=== PATIENT | male | born 1940 | race Caucasian/White ===

== ENCOUNTER → 2016-06-17 | Outpatient (REF) | payer MEDICARE, OTHER ==
[~2016-06-17] MED LIST: AMLO10TA2 PO; ASPI1TAB PO; COZA1TAB PO; ELIQ5TAB PO; FOLI1TAB2 PO; LEVA500T PO; MAG400TA PO; MEDR4PAK PO; PROP20TA PO; Thiamine Hcl PO
== END ==
LOC: M SFHCPLAZ 12:53
PROVIDERS: ATTEND Family Medicine
DX: E11.9 Type 2 diabetes mellitus without complications (principal); Z23 Encounter for immunization
CPT/HCPCS: 36415; 82043; 83036; 90670; G0009; G0463

== ENCOUNTER → 2016-06-20 | Outpatient (CLI) | payer MEDICARE, OTHER ==
[2016-06-20 11:32] LABS: FREE T4 1.27 NG/DL (0.76-1.46)
== END ==
LOC: M LAB 10:27
PROVIDERS: ATTEND Physician Assistant Medical
DX: E05.11 Thyrotoxicosis with toxic single thyroid nodule with thyrotoxic crisis or storm (principal)

== ENCOUNTER → 2016-09-26 | Outpatient (CLI) | payer MEDICARE, OTHER ==
[2016-09-26 09:30] LABS: FREE T4 1.09 NG/DL (0.76-1.46)
== END ==
LOC: M LAB 08:26
PROVIDERS: ATTEND Physician Assistant Medical
DX: E05.11 Thyrotoxicosis with toxic single thyroid nodule with thyrotoxic crisis or storm (principal)

== ENCOUNTER → 2017-01-23 | Outpatient (CLI) | payer MEDICARE, OTHER ==
[~2017-01-23] MED LIST changes: -FOLI1TAB2 PO; +FOLI1TAB4 PO; +LEVA1TAB2 PO; -LEVA500T PO
[2017-01-23 11:47] LABS: FREE T4 1.1 NG/DL (0.76-1.46)
== END ==
LOC: M LAB 09:10
PROVIDERS: ATTEND Internal Medicine Endocrinology, Diabetes & Metabolism
DX: E05.11 Thyrotoxicosis with toxic single thyroid nodule with thyrotoxic crisis or storm (principal)

== ENCOUNTER → 2017-01-31 | Outpatient (CLI) | payer MEDICARE, OTHER ==
[2017-01-31 10:19] LABS: ALBUMIN 3.6 GM/DL (3.2-5.2); ALBUMIN/GLOBULIN RATIO 1.06 (1.00-1.93); ALKALINE PHOSPHATASE 109 U/L (45-117); ALT/SGPT 20 U/L (12-78); ANION GAP 7 MEQ/L (8-16); AST/SGOT 14 U/L (15-37); BILIRUBIN,TOTAL 0.5 MG/DL (0.2-1.0); BLOOD UREA NITROGEN 14 MG/DL (7-18); CALCIUM LEVEL 8.9 MG/DL (8.8-10.2); CARBON DIOXIDE LEVEL 29 MEQ/L (21-32); CHLORIDE LEVEL 106 MEQ/L (98-107); CHOLESTEROL LEVEL 169 MG/DL (<200); CREATININE FOR GFR 0.85 MG/DL (0.70-1.30); GLOMERULAR FILTRATION RATE > 60.0 (>42); GLUCOSE, FASTING 91 MG/DL (83-110); POTASSIUM SERUM 4.4 MEQ/L (3.5-5.1); SODIUM LEVEL 142 MEQ/L (136-145); TRIGLYCERIDES LEVEL 68 MG/DL (<150)
== END ==
LOC: M LAB 08:49
PROVIDERS: ATTEND Student in an Organized Health Care Education/Training Program
DX: E83.42 Hypomagnesemia (principal); Z71.89 Other specified counseling; Z79.899 Other long term (current) drug therapy

== ENCOUNTER → 2017-04-14 | Outpatient (CLI) | payer MEDICARE, OTHER ==
[2017-04-14 11:06] LABS: FREE T4 1.28 NG/DL (0.76-1.46)
== END ==
LOC: M LAB 09:10
PROVIDERS: ATTEND Internal Medicine Endocrinology, Diabetes & Metabolism
DX: E05.11 Thyrotoxicosis with toxic single thyroid nodule with thyrotoxic crisis or storm (principal)

== ENCOUNTER → 2017-06-16 | Outpatient (CLI) | payer MEDICARE, OTHER ==
[2017-06-16 10:48] LABS: THYROID STIMULATING HORMONE 0.551 uIU/ML (0.358-3.740)
[2017-06-19 08:53] LABS: FREE T4 0.98 NG/DL (0.76-1.46)
== END ==
LOC: M LAB 09:04
DX: E05.11 Thyrotoxicosis with toxic single thyroid nodule with thyrotoxic crisis or storm (principal)
CPT/HCPCS: 84443

== ENCOUNTER → 2017-09-18 | Outpatient (CLI) | payer MEDICARE, OTHER ==
[2017-09-18 10:38] LABS: FREE T4 1.01 NG/DL (0.76-1.46); THYROID STIMULATING HORMONE 0.715 uIU/ML (0.358-3.740)
== END ==
LOC: M LAB 09:17
DX: E05.11 Thyrotoxicosis with toxic single thyroid nodule with thyrotoxic crisis or storm (principal)
CPT/HCPCS: 84443

== ENCOUNTER → 2017-10-30 | Outpatient (REF) | payer MEDICARE, OTHER | LOC: M SFHCPLAZ 09:19 | DX: I10 Essential (primary) hypertension (principal); Z53.8 Procedure and treatment not carried out for other reasons ==

== ENCOUNTER 2018-02-14 10:53 | Emergency (ER) | payer MEDICARE, OTHER ==
[2018-02-14 11:24] LABS: BASO % 0.3 % (0.0-1.0); EOS # 0.1 10^3/uL (0.0-0.50); EOS % 0.7 % (0.0-3.0); HEMATOCRIT 38.3 % (42.0-52.0); IMMATURE GRANULOCYTE % 0.1 % (0-3.0); LYMPH # 1.5 10^3/uL (1.5-4.5); LYMPH % 20.4 % (24.0-44.0); MEAN CORPUSCULAR HEMOGLOBIN 31.6 pg (27.0-33.0); MEAN CORPUSCULAR HGB CONC 33.9 g/dl (32.0-36.5); MONO # 0.5 10^3/uL (0.0-0.8); NEUTROPHILS # 5.4 10^3/uL (1.8-7.7); NEUTROPHILS % 72.5 % (36.0-66.0); PLATELET COUNT, AUTOMATED 180 10^3/uL (150-450); RED BLOOD COUNT 4.12 10^6/uL (4.30-6.10); RED CELL DISTRIBUTION WIDTH 13.4 % (11.5-14.5); WHITE BLOOD COUNT 7.5 10^3/uL (4.0-10.0)
[2018-02-14 11:41] LABS: INR 1.31; PROTHROMBIN TIME 16.5 SECONDS (12.1-14.4)
[2018-02-14 12:33] LABS: ALBUMIN/GLOBULIN RATIO 1.11 (1.00-1.93); ALKALINE PHOSPHATASE 113 U/L (45-117); ALT/SGPT 23 U/L (12-78); ANION GAP 8 MEQ/L (8-16); AST/SGOT 20 U/L (7-37); BILIRUBIN,DIRECT 0.2 MG/DL (0.0-0.2); BILIRUBIN,TOTAL 0.7 MG/DL (0.2-1.0); BLOOD UREA NITROGEN 16 MG/DL (7-18); CALCIUM LEVEL 8.3 MG/DL (8.8-10.2); CARBON DIOXIDE LEVEL 29 MEQ/L (21-32); CHLORIDE LEVEL 103 MEQ/L (98-107); CK-MB VALUE MASS < 1.0 NG/ML (<3.6); CPK CREATINE PHOSPHOKINASE 73 U/L (39-308); CREATININE FOR GFR 0.98 MG/DL (0.70-1.30); FREE T4 1.08 NG/DL (0.76-1.46); GLOMERULAR FILTRATION RATE > 60.0 (>42); GLUCOSE, FASTING 106 MG/DL (70-100); LIPASE 97 U/L (73-393); MAGNESIUM LEVEL 2.3 MG/DL (1.8-2.4); MB/CK RELATIVE INDEX 1.37 (< OR =4); NT-PRO BNP 131 PG/ML (<450); POTASSIUM SERUM 4.1 MEQ/L (3.5-5.1); SODIUM LEVEL 140 MEQ/L (136-145); THYROID STIMULATING HORMONE 0.768 uIU/ML (0.358-3.740); TOTAL PROTEIN 7.6 GM/DL (6.4-8.2); TROPONIN I < 0.02 NG/ML (< 0.10)
[2018-02-14] MEDS ORDERED: E-Z-GAS II EFFERVESCENT PACKET (SODIUM BICARB./CITRIC ACID/SIMETHICONE) As Ordered (16:03)
[2018-02-14] MEDS ORDERED: E-Z-HD 98% w/w 340GM SUSP BTL As Ordered (16:03)
[2018-02-14] MEDS ORDERED: E-Z-PAQUE 96% w/w SUSP 176GM BTL As Ordered (16:03)
== END 2018-02-14 18:10 | disposition home or self-care (01) ==
LOC: M ED 10:53
DX: K22.2 Esophageal obstruction (principal); I10 Essential (primary) hypertension; E07.9 Disorder of thyroid, unspecified; I48.92 Unspecified atrial flutter; Z79.01 Long term (current) use of anticoagulants; Z87.891 Personal history of nicotine dependence
CPT/HCPCS: 71045

== ENCOUNTER 2018-03-16 11:55 | Day surgery (SDC) | payer MEDICARE, OTHER ==
[2018-03-16] MEDS: NS 1,000 ML IV (06:30)
[~2018-03-16 11:55] MED LIST changes: -AMLO10TA2 PO; -ASPI1TAB PO; -COZA1TAB PO; -ELIQ5TAB PO; -FOLI1TAB4 PO; -LEVA1TAB2 PO; +LIDOCAINE 2% INJ 100 MG/5 ML SDV (FOR ANES.) As Ordered; -MAG400TA PO; -MEDR4PAK PO; -PROP20TA PO; +PROPOFOL 200 MG/20 ML VIAL As Ordered; -Thiamine Hcl PO
[2018-03-16] MEDS ORDERED: fentaNYL 100 MCG/2 ML INJECTION (J3010) As Ordered (13:51)
[2018-03-16] MEDS ORDERED: PROPOFOL 200 MG/20 ML VIAL As Ordered (14:09)
== END 2018-03-16 14:48 | disposition home or self-care (01) ==
LOC: M OPP 11:55
DX: R93.3 Abnormal findings on diagnostic imaging of other parts of digestive tract (principal); R13.10 Dysphagia, unspecified; D49.0 Neoplasm of unspecified behavior of digestive system; I48.0 Paroxysmal atrial fibrillation; I11.9 Hypertensive heart disease without heart failure; E03.9 Hypothyroidism, unspecified; K21.9 Gastro-esophageal reflux disease without esophagitis; M17.10 Unilateral primary osteoarthritis, unspecified knee; I50.9 Heart failure, unspecified; Z79.899 Other long term (current) drug therapy; Z85.828 Personal history of other malignant neoplasm of skin
CPT/HCPCS: 43239

== ENCOUNTER 2018-04-01 12:49 | Inpatient (IN) | payer MEDICARE, OTHER ==
[2018-04-01] MEDS: NS 1,000 ML IV (13:45)
[2018-04-01] MEDS ORDERED: MORPHINE 4 MG/ML 1ML VIAL/SYRINGE (J2270) As Ordered (13:51)
[2018-04-01] MEDS: MORPHINE 4 MG/ML 1ML VIAL/SYRINGE (J2270) IV ×4 (13:58→22:30)
[2018-04-01 14:03] LABS: BASO % 0.3 % (0.0-1.0); EOS # 0.1 10^3/uL (0.0-0.50); EOS % 1.1 % (0.0-3.0); HEMOGLOBIN 15.1 g/dl (13.5-17.5); IMMATURE GRANULOCYTE % 0.7 % (0-3.0); LYMPH # 1.5 10^3/uL (1.5-4.5); LYMPH % 14.5 % (24.0-44.0); MEAN CORPUSCULAR HEMOGLOBIN 31.5 pg (27.0-33.0); MEAN CORPUSCULAR HGB CONC 34.3 g/dl (32.0-36.5); MEAN CORPUSCULAR VOLUME 91.9 fl (80.0-96.0); MONO # 0.9 10^3/uL (0.0-0.8); MONO % 8.3 % (0.0-5.0); NEUTROPHILS # 7.7 10^3/uL (1.8-7.7); NEUTROPHILS % 75.1 % (36.0-66.0); PLATELET COUNT, AUTOMATED 159 10^3/uL (150-450); RED BLOOD COUNT 4.79 10^6/uL (4.30-6.10); WHITE BLOOD COUNT 10.2 10^3/uL (4.0-10.0)
[2018-04-01 15:47] LABS: ALBUMIN 3.7 GM/DL (3.2-5.2); ALKALINE PHOSPHATASE 358 U/L (45-117); ALT/SGPT 33 U/L (12-78); ANION GAP 7 MEQ/L (8-16); AST/SGOT 41 U/L (7-37); BILIRUBIN,DIRECT 0.3 MG/DL (0.0-0.2); BILIRUBIN,TOTAL 0.8 MG/DL (0.2-1.0); BLOOD UREA NITROGEN 26 MG/DL (7-18); CALCIUM LEVEL 9.5 MG/DL (8.8-10.2); CARBON DIOXIDE LEVEL 32 MEQ/L (21-32); CHLORIDE LEVEL 100 MEQ/L (98-107); CREATININE FOR GFR 0.89 MG/DL (0.70-1.30); GLOMERULAR FILTRATION RATE > 60.0 (>42); GLUCOSE, FASTING 100 MG/DL (70-100); POTASSIUM SERUM 3.9 MEQ/L (3.5-5.1); SODIUM LEVEL 139 MEQ/L (136-145); TOTAL PROTEIN 7.4 GM/DL (6.4-8.2)
[2018-04-01] MEDS: D5W/0.9% SODIUM CHLORIDE 1,000 ML IV (17:15)
[2018-04-01] MEDS ORDERED: MORPHINE 2 MG/ML 1ML SYRINGE (J2270) As Ordered (18:04)
[2018-04-01] MEDS: PANTOPRAZOLE 40MG INJ (PROTONIX) (C9113) IV (21:22)
[2018-04-01] MEDS: ENOXAPARIN 40 MG/0.4 ML SYRINGE (J1650) SC (21:22)
[2018-04-01] MEDS: SUCRALFATE 1 GM TAB PO (21:29)
[2018-04-01] MEDS: CARVedilol 6.25 MG TAB PO (21:29)
[2018-04-01] MEDS: KETOROLAC 30 MG/ML VIAL (J1885) IV (23:30)
[2018-04-02] MEDS: HYDROMORPHONE HCL 0.5 MG/ 0.5 ML SYRINGE (J1170 PER 1) IV (02:21)
[2018-04-02 06:03] LABS: HEMATOCRIT 38.6 % (42.0-52.0); HEMOGLOBIN 13.2 g/dl (13.5-17.5); MEAN CORPUSCULAR HEMOGLOBIN 31.8 pg (27.0-33.0); MEAN CORPUSCULAR HGB CONC 34.2 g/dl (32.0-36.5); PLATELET COUNT, AUTOMATED 130 10^3/uL (150-450); RED BLOOD COUNT 4.15 10^6/uL (4.30-6.10); WHITE BLOOD COUNT 7.1 10^3/uL (4.0-10.0)
[2018-04-02 06:24] LABS: ANION GAP 7 MEQ/L (8-16); BLOOD UREA NITROGEN 22 MG/DL (7-18); CARBON DIOXIDE LEVEL 30 MEQ/L (21-32); CHLORIDE LEVEL 104 MEQ/L (98-107); CREATININE FOR GFR 0.76 MG/DL (0.70-1.30); GLOMERULAR FILTRATION RATE > 60.0 (>42); GLUCOSE, FASTING 102 MG/DL (70-100); POTASSIUM SERUM 3.7 MEQ/L (3.5-5.1); SODIUM LEVEL 141 MEQ/L (136-145)
[2018-04-02] MEDS: SUCRALFATE 1 GM TAB PO ×2 (07:58→12:00)
[2018-04-02 08:13] LABS: REASON FOR REVIEW RBC MORPHOLOGY; SLIDE REVIEW Report; SOURCE PERIPHERAL SMEAR
[2018-04-02] MEDS: GASTROGRAFIN SOLUTION 30ML PO ×2 (08:44→09:39)
[2018-04-02] MEDS: MORPHINE 4 MG/ML 1ML VIAL/SYRINGE (J2270) IV (08:45)
[2018-04-02] MEDS: CARVedilol 6.25 MG TAB PO ×2 (09:00→20:17)
[2018-04-02 09:12] LABS: CHOLESTEROL LEVEL 125 MG/DL (<200); CHOLESTEROL RISK RATIO 3.125 (<5); FERRITIN 1106 NG/ML (26-388); HDL CHOLESTEROL 40 MG/DL (>40); IRON (FE) 67 UG/DL (65-175); LDH LACTATE DEHYDROGENASE 303 U/L (87-241); LDL CHOLESTEROL 70 MG/DL (<100); NON-HDL-C 85 MG/DL; PERCENT SATURATION 38.5 % (19.7-50.0); TOTAL IRON BINDING CAPACITY 174 UG/DL (250-450); TRIGLYCERIDES LEVEL 75 MG/DL (<150)
[2018-04-02 09:54] LABS: VITAMIN B12 LEVEL 470 PG/ML (247-911)
[2018-04-02 09:55] LABS: FOLATE > 24.0 NG/ML (>5.4)
[2018-04-02] MEDS ORDERED: ISOVUE-370 76% 100ML VIAL (Q9967) As Ordered (10:22)
[2018-04-02] MEDS: ASPIRIN 81 MG ENTERIC TAB PO (15:02)
[2018-04-02] MEDS: FOLIC ACID 1 MG TAB PO (15:03)
[2018-04-02] MEDS: amLODIPine 10 MG TAB PO (15:03)
[2018-04-02] MEDS: ATORVASTATIN 20 MG TAB PO (15:04)
[2018-04-02] MEDS: THIAMINE 100 MG TAB PO (15:04)
[2018-04-02] MEDS: oxyCODONE 5MG TAB PO ×2 (15:04→20:17)
[2018-04-02] MEDS ORDERED: PILL CRUSHER/CUTTER 1 EACH XX (15:30)
[2018-04-02 16:57] LABS: CPK CREATINE PHOSPHOKINASE 160 U/L (39-308); MB/CK RELATIVE INDEX 1.25 (< OR =4); TROPONIN I 0.31 NG/ML (< 0.10)
[2018-04-02] MEDS: SUCRALFATE SUSP 1GM/10ML UD PO ×2 (18:07→21:00)
[2018-04-02] MEDS: PANTOPRAZOLE 40MG INJ (PROTONIX) (C9113) IV (20:15)
[2018-04-02] MEDS: APIXABAN 5 MG TAB (ELIQUIS) PO (20:17)
[2018-04-03] MEDS: oxyCODONE 5MG TAB PO ×5 (01:13→23:13)
[2018-04-03] MEDS: HYDROMORPHONE HCL 0.5 MG/ 0.5 ML SYRINGE (J1170 PER 1) IV ×2 (03:44→16:42)
[2018-04-03 06:09] LABS: BASO % 0.5 % (0.0-1.0); EOS # 0.2 10^3/uL (0.0-0.50); EOS % 2.3 % (0.0-3.0); HEMATOCRIT 37.7 % (42.0-52.0); IMMATURE GRANULOCYTE % 0.5 % (0-3.0); LYMPH # 1.5 10^3/uL (1.5-4.5); LYMPH % 20.5 % (24.0-44.0); MEAN CORPUSCULAR HEMOGLOBIN 31.6 pg (27.0-33.0); MEAN CORPUSCULAR HGB CONC 34.5 g/dl (32.0-36.5); MEAN CORPUSCULAR VOLUME 91.7 fl (80.0-96.0); MONO # 0.8 10^3/uL (0.0-0.8); MONO % 10.3 % (0.0-5.0); NEUTROPHILS # 4.9 10^3/uL (1.8-7.7); NEUTROPHILS % 65.9 % (36.0-66.0); PLATELET COUNT, AUTOMATED 127 10^3/uL (150-450); RED BLOOD COUNT 4.11 10^6/uL (4.30-6.10); RED CELL DISTRIBUTION WIDTH 12.9 % (11.5-14.5); WHITE BLOOD COUNT 7.4 10^3/uL (4.0-10.0)
[2018-04-03 06:30] LABS: ALBUMIN 3.1 GM/DL (3.2-5.2); ALBUMIN/GLOBULIN RATIO 0.89 (1.00-1.93); ALKALINE PHOSPHATASE 337 U/L (45-117); ALT/SGPT 34 U/L (12-78); ANION GAP 6 MEQ/L (8-16); AST/SGOT 44 U/L (7-37); BILIRUBIN,TOTAL 0.8 MG/DL (0.2-1.0); BLOOD UREA NITROGEN 12 MG/DL (7-18); CALCIUM LEVEL 8.8 MG/DL (8.8-10.2); CARBON DIOXIDE LEVEL 31 MEQ/L (21-32); CHLORIDE LEVEL 101 MEQ/L (98-107); CPK CREATINE PHOSPHOKINASE 109 U/L (39-308); CREATININE FOR GFR 0.64 MG/DL (0.70-1.30); GLOMERULAR FILTRATION RATE > 60.0 (>42); GLUCOSE, FASTING 101 MG/DL (70-100); MB/CK RELATIVE INDEX 1.47 (< OR =4); POTASSIUM SERUM 3.3 MEQ/L (3.5-5.1); SODIUM LEVEL 138 MEQ/L (136-145); TOTAL PROTEIN 6.6 GM/DL (6.4-8.2); TROPONIN I 0.25 NG/ML (< 0.10)
[2018-04-03] MEDS: SUCRALFATE SUSP 1GM/10ML UD PO ×4 (07:30→21:25)
[2018-04-03 08:06] LABS: HAPTOGLOBIN 193 mg/dL (34-200)
[2018-04-03 08:59] LABS: CPK CREATINE PHOSPHOKINASE 100 U/L (39-308); TROPONIN I 0.25 NG/ML (< 0.10)
[2018-04-03] MEDS ORDERED: ASPIRIN 325 MG TAB PO (09:00)
[2018-04-03] MEDS: ASPIRIN 81 MG ENTERIC TAB PO (09:46)
[2018-04-03] MEDS: ATORVASTATIN 20 MG TAB PO (09:46)
[2018-04-03] MEDS: CARVedilol 6.25 MG TAB PO ×2 (09:47→21:27)
[2018-04-03] MEDS: THIAMINE 100 MG TAB PO (09:47)
[2018-04-03] MEDS: APIXABAN 5 MG TAB (ELIQUIS) PO ×2 (09:47→21:26)
[2018-04-03] MEDS: POTASSIUM CHLORIDE 10 MEQ SR TABLET PO (09:48)
[2018-04-03] MEDS: amLODIPine 10 MG TAB PO (09:48)
[2018-04-03] MEDS: FOLIC ACID 1 MG TAB PO (09:48)
[2018-04-03] MEDS: SENOKOT S TAB PO (16:16)
[2018-04-03] MEDS ORDERED: BISACODYL 10 MG SUPP PR (18:15)
[2018-04-03] MEDS: MOM 30ML SUSPENSION UDC PO (18:36)
[2018-04-03] MEDS: LISINOPRIL 5 MG TAB PO (21:26)
[2018-04-03] MEDS: PANTOPRAZOLE 40MG INJ (PROTONIX) (C9113) IV (21:27)
[2018-04-04] MEDS: HYDROMORPHONE HCL 0.5 MG/ 0.5 ML SYRINGE (J1170 PER 1) IV ×4 (02:36→17:57)
[2018-04-04] MEDS: oxyCODONE 5MG TAB PO ×4 (05:16→20:12)
[2018-04-04 06:01] LABS: BASO % 0.2 % (0.0-1.0); EOS # 0.1 10^3/uL (0.0-0.50); EOS % 1.7 % (0.0-3.0); HEMATOCRIT 39.9 % (42.0-52.0); HEMOGLOBIN 13.7 g/dl (13.5-17.5); LYMPH # 1.8 10^3/uL (1.5-4.5); LYMPH % 22.1 % (24.0-44.0); MEAN CORPUSCULAR HEMOGLOBIN 31.8 pg (27.0-33.0); MEAN CORPUSCULAR HGB CONC 34.3 g/dl (32.0-36.5); MEAN CORPUSCULAR VOLUME 92.6 fl (80.0-96.0); MONO # 0.7 10^3/uL (0.0-0.8); MONO % 8.5 % (0.0-5.0); NEUTROPHILS # 5.5 10^3/uL (1.8-7.7); NEUTROPHILS % 66.5 % (36.0-66.0); PLATELET COUNT, AUTOMATED 141 10^3/uL (150-450); RED BLOOD COUNT 4.31 10^6/uL (4.30-6.10); RED CELL DISTRIBUTION WIDTH 13.1 % (11.5-14.5); WHITE BLOOD COUNT 8.3 10^3/uL (4.0-10.0)
[2018-04-04 06:34] LABS: ALBUMIN 3.1 GM/DL (3.2-5.2); ALBUMIN/GLOBULIN RATIO 0.84 (1.00-1.93); ALKALINE PHOSPHATASE 377 U/L (45-117); ALT/SGPT 42 U/L (12-78); ANION GAP 5 MEQ/L (8-16); AST/SGOT 38 U/L (7-37); BILIRUBIN,TOTAL 0.8 MG/DL (0.2-1.0); BLOOD UREA NITROGEN 14 MG/DL (7-18); CALCIUM LEVEL 8.8 MG/DL (8.8-10.2); CARBON DIOXIDE LEVEL 32 MEQ/L (21-32); CHLORIDE LEVEL 101 MEQ/L (98-107); CREATININE FOR GFR 0.85 MG/DL (0.70-1.30); GLOMERULAR FILTRATION RATE > 60.0 (>42); GLUCOSE, FASTING 85 MG/DL (70-100); POTASSIUM SERUM 4.5 MEQ/L (3.5-5.1); SODIUM LEVEL 138 MEQ/L (136-145); TOTAL PROTEIN 6.8 GM/DL (6.4-8.2)
[2018-04-04] MEDS: SUCRALFATE SUSP 1GM/10ML UD PO ×4 (08:54→20:10)
[2018-04-04] MEDS: ASPIRIN 81 MG ENTERIC TAB PO (08:54)
[2018-04-04] MEDS: CARVedilol 6.25 MG TAB PO ×2 (08:55→20:12)
[2018-04-04] MEDS: ATORVASTATIN 20 MG TAB PO (08:55)
[2018-04-04] MEDS: THIAMINE 100 MG TAB PO (08:55)
[2018-04-04] MEDS: FOLIC ACID 1 MG TAB PO (08:55)
[2018-04-04] MEDS: APIXABAN 5 MG TAB (ELIQUIS) PO ×2 (08:55→20:12)
[2018-04-04] MEDS: MOM 30ML SUSPENSION UDC PO (08:56)
[2018-04-04] MEDS: amLODIPine 10 MG TAB PO (08:56)
[2018-04-04 14:14] LABS: PSA % FREE 22.5 % (.); PSA FREE 1.51 ng/mL; PSA TOTAL 6.7 ng/mL (0.0-4.0)
[2018-04-04 14:15] LABS: CPK CREATINE PHOSPHOKINASE 85 U/L (39-308); MB/CK RELATIVE INDEX 1.65 (< OR =4); TROPONIN I 0.14 NG/ML (< 0.10)
[2018-04-04] MEDS: CYCLOBENZAPRINE 5MG TABLET PO (14:23)
[2018-04-04] MEDS: PANTOPRAZOLE 40MG INJ (PROTONIX) (C9113) IV (20:11)
[2018-04-04] MEDS: LISINOPRIL 5 MG TAB PO (20:11)
[2018-04-04 21:55] LABS: CPK CREATINE PHOSPHOKINASE 84 U/L (39-308); TROPONIN I 0.17 NG/ML (< 0.10)
[2018-04-05] MEDS: oxyCODONE 5MG TAB PO ×2 (01:36→05:50)
[2018-04-05 05:55] LABS: BASO % 0.3 % (0.0-1.0); EOS # 0.1 10^3/uL (0.0-0.50); EOS % 1.3 % (0.0-3.0); HEMATOCRIT 39.4 % (42.0-52.0); HEMOGLOBIN 13.8 g/dl (13.5-17.5); LYMPH # 1.6 10^3/uL (1.5-4.5); LYMPH % 16.8 % (24.0-44.0); MEAN CORPUSCULAR HEMOGLOBIN 31.9 pg (27.0-33.0); MEAN CORPUSCULAR VOLUME 91.2 fl (80.0-96.0); MONO # 0.7 10^3/uL (0.0-0.8); MONO % 7.7 % (0.0-5.0); NEUTROPHILS # 6.8 10^3/uL (1.8-7.7); NEUTROPHILS % 72.9 % (36.0-66.0); PLATELET COUNT, AUTOMATED 148 10^3/uL (150-450); RED BLOOD COUNT 4.32 10^6/uL (4.30-6.10); RED CELL DISTRIBUTION WIDTH 13.2 % (11.5-14.5); WHITE BLOOD COUNT 9.3 10^3/uL (4.0-10.0)
[2018-04-05] MEDS: SENOKOT S TAB PO (06:08)
[2018-04-05 06:21] LABS: ALBUMIN 3.4 GM/DL (3.2-5.2); ALBUMIN/GLOBULIN RATIO 0.89 (1.00-1.93); ALKALINE PHOSPHATASE 407 U/L (45-117); ALT/SGPT 36 U/L (12-78); ANION GAP 11 MEQ/L (8-16); AST/SGOT 35 U/L (7-37); BILIRUBIN,TOTAL 0.7 MG/DL (0.2-1.0); BLOOD UREA NITROGEN 15 MG/DL (7-18); CALCIUM LEVEL 9.1 MG/DL (8.8-10.2); CARBON DIOXIDE LEVEL 29 MEQ/L (21-32); CHLORIDE LEVEL 98 MEQ/L (98-107); CPK CREATINE PHOSPHOKINASE 74 U/L (39-308); CREATININE FOR GFR 0.78 MG/DL (0.70-1.30); GLOMERULAR FILTRATION RATE > 60.0 (>42); GLUCOSE, FASTING 88 MG/DL (70-100); MB/CK RELATIVE INDEX 2.43 (< OR =4); POTASSIUM SERUM 3.9 MEQ/L (3.5-5.1); SODIUM LEVEL 138 MEQ/L (136-145); TOTAL PROTEIN 7.2 GM/DL (6.4-8.2)
[2018-04-05] MEDS: APIXABAN 5 MG TAB (ELIQUIS) PO ×2 (08:22→22:25)
[2018-04-05] MEDS: THIAMINE 100 MG TAB PO (08:22)
[2018-04-05] MEDS: ASPIRIN 81 MG ENTERIC TAB PO (08:22)
[2018-04-05] MEDS: FOLIC ACID 1 MG TAB PO (08:22)
[2018-04-05] MEDS: SUCRALFATE SUSP 1GM/10ML UD PO ×5 (08:22→21:00)
[2018-04-05] MEDS: MOM 30ML SUSPENSION UDC PO (08:22)
[2018-04-05] MEDS: CARVedilol 6.25 MG TAB PO ×2 (08:23→22:24)
[2018-04-05] MEDS: amLODIPine 10 MG TAB PO (08:23)
[2018-04-05] MEDS: ATORVASTATIN 20 MG TAB PO (08:23)
[2018-04-05] MEDS: CYCLOBENZAPRINE 5MG TABLET PO (08:23)
[2018-04-05] MEDS: ONDANSETRON 4MG/2ML VIAL (J2405) IV (08:55)
[2018-04-05] MEDS: LACTULOSE 20 GM/30 ML SYRUP UD PO ×3 (12:00→17:04)
[2018-04-05] MEDS: oxyCODONE 10 MG CR TAB PO ×2 (13:32→21:00)
[2018-04-05] MEDS: HYDROcodone/APAP LIQUID 7.5-325MG 15ML UDC (LORTAB ELIXIR) PO ×3 (14:25→22:55)
[2018-04-05 14:49] LABS: CPK CREATINE PHOSPHOKINASE 82 U/L (39-308); MB/CK RELATIVE INDEX 1.59 (< OR =4); TROPONIN I 0.09 NG/ML (< 0.10)
[2018-04-05 22:01] LABS: CK-MB VALUE MASS < 1.0 NG/ML (<3.6); CPK CREATINE PHOSPHOKINASE 50 U/L (39-308)
[2018-04-05] MEDS: LISINOPRIL 10 MG TAB PO (22:23)
[2018-04-05] MEDS: PANTOPRAZOLE 40MG INJ (PROTONIX) (C9113) IV (22:25)
[2018-04-06] MEDS: HYDROcodone/APAP LIQUID 7.5-325MG 15ML UDC (LORTAB ELIXIR) PO ×2 (04:00→08:14)
[2018-04-06] MEDS: LACTULOSE 20 GM/30 ML SYRUP UD PO ×5 (05:40→23:58)
[2018-04-06 05:54] LABS: BASO % 0.1 % (0.0-1.0); EOS % 0.2 % (0.0-3.0); HEMATOCRIT 38.6 % (42.0-52.0); HEMOGLOBIN 13.2 g/dl (13.5-17.5); IMMATURE GRANULOCYTE % 0.6 % (0-3.0); LYMPH # 1.5 10^3/uL (1.5-4.5); LYMPH % 13.4 % (24.0-44.0); MEAN CORPUSCULAR HEMOGLOBIN 31.9 pg (27.0-33.0); MEAN CORPUSCULAR HGB CONC 34.2 g/dl (32.0-36.5); MEAN CORPUSCULAR VOLUME 93.2 fl (80.0-96.0); MONO # 0.9 10^3/uL (0.0-0.8); NEUTROPHILS # 8.5 10^3/uL (1.8-7.7); NEUTROPHILS % 77.7 % (36.0-66.0); PLATELET COUNT, AUTOMATED 151 10^3/uL (150-450); RED BLOOD COUNT 4.14 10^6/uL (4.30-6.10); RED CELL DISTRIBUTION WIDTH 13.3 % (11.5-14.5)
[2018-04-06 06:33] LABS: ALBUMIN 2.9 GM/DL (3.2-5.2); ALBUMIN/GLOBULIN RATIO 0.83 (1.00-1.93); ALKALINE PHOSPHATASE 353 U/L (45-117); ALT/SGPT 28 U/L (12-78); ANION GAP 6 MEQ/L (8-16); AST/SGOT 23 U/L (7-37); BILIRUBIN,TOTAL 0.6 MG/DL (0.2-1.0); BLOOD UREA NITROGEN 25 MG/DL (7-18); CALCIUM LEVEL 8.1 MG/DL (8.8-10.2); CARBON DIOXIDE LEVEL 32 MEQ/L (21-32); CHLORIDE LEVEL 100 MEQ/L (98-107); CK-MB VALUE MASS < 1.0 NG/ML (<3.6); CPK CREATINE PHOSPHOKINASE 39 U/L (39-308); CREATININE FOR GFR 1.08 MG/DL (0.70-1.30); GLOMERULAR FILTRATION RATE > 60.0 (>42); GLUCOSE, FASTING 138 MG/DL (70-100); MB/CK RELATIVE INDEX 2.56 (< OR =4); POTASSIUM SERUM 3.7 MEQ/L (3.5-5.1); SODIUM LEVEL 138 MEQ/L (136-145); TOTAL PROTEIN 6.4 GM/DL (6.4-8.2); TROPONIN I 0.08 NG/ML (< 0.10)
[2018-04-06] MEDS: ASPIRIN 81 MG ENTERIC TAB PO (08:11)
[2018-04-06] MEDS: SUCRALFATE SUSP 1GM/10ML UD PO ×4 (08:11→21:00)
[2018-04-06] MEDS: CARVedilol 6.25 MG TAB PO ×2 (08:12→21:36)
[2018-04-06] MEDS: amLODIPine 10 MG TAB PO (08:12)
[2018-04-06] MEDS: APIXABAN 5 MG TAB (ELIQUIS) PO ×2 (08:12→21:35)
[2018-04-06] MEDS: ATORVASTATIN 20 MG TAB PO (08:12)
[2018-04-06] MEDS: oxyCODONE 10 MG CR TAB PO ×2 (08:13→21:35)
[2018-04-06] MEDS: oxyCODONE 5MG TAB PO ×2 (12:03→16:18)
[2018-04-06] MEDS: THIAMINE 100 MG TAB PO (12:04)
[2018-04-06] MEDS: FOLIC ACID 1 MG TAB PO (12:04)
[2018-04-06] MEDS: NS 1,000 ML IV (16:45)
[2018-04-06] MEDS: LISINOPRIL 10 MG TAB PO (21:36)
[2018-04-06] MEDS: PANTOPRAZOLE 40MG INJ (PROTONIX) (C9113) IV (21:36)
[2018-04-07] MEDS: HYDROcodone/APAP LIQUID 7.5-325MG 15ML UDC (LORTAB ELIXIR) PO ×3 (00:45→19:53)
[2018-04-07] MEDS: oxyCODONE 5MG TAB PO ×3 (03:55→12:42)
[2018-04-07] MEDS: NS 1,000 ML IV (03:55)
[2018-04-07] MEDS: LACTULOSE 20 GM/30 ML SYRUP UD PO ×3 (05:59→18:00)
[2018-04-07 06:13] LABS: BASO % 0.2 % (0.0-1.0); EOS # 0.2 10^3/uL (0.0-0.50); EOS % 1.6 % (0.0-3.0); HEMATOCRIT 38.7 % (42.0-52.0); HEMOGLOBIN 13.3 g/dl (13.5-17.5); IMMATURE GRANULOCYTE % 0.9 % (0-3.0); LYMPH # 1.7 10^3/uL (1.5-4.5); LYMPH % 17.1 % (24.0-44.0); MEAN CORPUSCULAR HEMOGLOBIN 32.1 pg (27.0-33.0); MEAN CORPUSCULAR HGB CONC 34.4 g/dl (32.0-36.5); MEAN CORPUSCULAR VOLUME 93.5 fl (80.0-96.0); MONO # 0.8 10^3/uL (0.0-0.8); MONO % 8.4 % (0.0-5.0); NEUTROPHILS % 71.8 % (36.0-66.0); PLATELET COUNT, AUTOMATED 168 10^3/uL (150-450); RED BLOOD COUNT 4.14 10^6/uL (4.30-6.10); RED CELL DISTRIBUTION WIDTH 13.2 % (11.5-14.5); WHITE BLOOD COUNT 9.8 10^3/uL (4.0-10.0)
[2018-04-07 06:37] LABS: ALBUMIN 2.8 GM/DL (3.2-5.2); ALBUMIN/GLOBULIN RATIO 0.76 (1.00-1.93); ALKALINE PHOSPHATASE 340 U/L (45-117); ALT/SGPT 24 U/L (12-78); ANION GAP 6 MEQ/L (8-16); AST/SGOT 22 U/L (7-37); BILIRUBIN,TOTAL 0.5 MG/DL (0.2-1.0); BLOOD UREA NITROGEN 24 MG/DL (7-18); CALCIUM LEVEL 8.5 MG/DL (8.8-10.2); CARBON DIOXIDE LEVEL 30 MEQ/L (21-32); CHLORIDE LEVEL 102 MEQ/L (98-107); CREATININE FOR GFR 0.87 MG/DL (0.70-1.30); GLOMERULAR FILTRATION RATE > 60.0 (>42); GLUCOSE, FASTING 99 MG/DL (70-100); POTASSIUM SERUM 3.6 MEQ/L (3.5-5.1); SODIUM LEVEL 138 MEQ/L (136-145); TOTAL PROTEIN 6.5 GM/DL (6.4-8.2)
[2018-04-07] MEDS: SUCRALFATE SUSP 1GM/10ML UD PO (08:00)
[2018-04-07] MEDS: APIXABAN 5 MG TAB (ELIQUIS) PO ×2 (08:00→20:36)
[2018-04-07] MEDS: oxyCODONE 10 MG CR TAB PO ×2 (08:00→20:36)
[2018-04-07] MEDS: amLODIPine 10 MG TAB PO (08:01)
[2018-04-07] MEDS: ASPIRIN 81 MG ENTERIC TAB PO (08:01)
[2018-04-07] MEDS: CARVedilol 6.25 MG TAB PO ×2 (08:01→20:36)
[2018-04-07] MEDS: ATORVASTATIN 20 MG TAB PO (08:01)
[2018-04-07] MEDS: MORPHINE 10MG/0.5ML ORAL CONCENTRATE SOLUTION U/D SL ×2 (11:33→19:01)
[2018-04-07] MEDS: PANTOPRAZOLE 40MG TAB (PROTONIX) PO (11:35)
[2018-04-07] MEDS: CYCLOBENZAPRINE 10 MG TAB PO (12:42)
[2018-04-07] MEDS: LISINOPRIL 10 MG TAB PO (20:35)
[2018-04-08] MEDS: HYDROcodone/APAP LIQUID 7.5-325MG 15ML UDC (LORTAB ELIXIR) PO ×4 (03:23→20:27)
[2018-04-08] MEDS: LACTULOSE 20 GM/30 ML SYRUP UD PO ×5 (05:23→23:25)
[2018-04-08] MEDS: oxyCODONE 5MG TAB PO ×4 (05:25→23:26)
[2018-04-08] MEDS: oxyCODONE 10 MG CR TAB PO ×2 (08:09→20:26)
[2018-04-08] MEDS: ASPIRIN 81 MG ENTERIC TAB PO (08:11)
[2018-04-08] MEDS: amLODIPine 10 MG TAB PO (08:11)
[2018-04-08] MEDS: APIXABAN 5 MG TAB (ELIQUIS) PO ×2 (08:11→20:25)
[2018-04-08] MEDS: CARVedilol 6.25 MG TAB PO ×2 (08:12→20:25)
[2018-04-08] MEDS: PANTOPRAZOLE 40MG TAB (PROTONIX) PO (08:14)
[2018-04-08] MEDS: LISINOPRIL 10 MG TAB PO (20:27)
[2018-04-09] MEDS: LACTULOSE 20 GM/30 ML SYRUP UD PO ×4 (05:36→23:34)
[2018-04-09] MEDS: HYDROcodone/APAP LIQUID 7.5-325MG 15ML UDC (LORTAB ELIXIR) PO ×3 (05:37→17:35)
[2018-04-09] MEDS: CYCLOBENZAPRINE 10 MG TAB PO ×3 (06:00→21:16)
[2018-04-09] MEDS: oxyCODONE 10 MG CR TAB PO ×2 (08:00→21:15)
[2018-04-09] MEDS: oxyCODONE 5MG TAB PO (13:30)
[2018-04-09] MEDS: MORPHINE 10MG/0.5ML ORAL CONCENTRATE SOLUTION U/D SL ×2 (17:40→22:56)
[2018-04-09] MEDS: LIDOCAINE 5% (LIDODERM) PATCH TOP (21:16)
[2018-04-10] MEDS: HYDROcodone/APAP LIQUID 7.5-325MG 15ML UDC (LORTAB ELIXIR) PO ×2 (01:16→05:16)
[2018-04-10] MEDS: oxyCODONE 5MG TAB PO ×2 (04:23→14:05)
[2018-04-10] MEDS: LACTULOSE 20 GM/30 ML SYRUP UD PO ×4 (05:14→23:18)
[2018-04-10] MEDS: CYCLOBENZAPRINE 10 MG TAB PO ×3 (05:14→21:10)
[2018-04-10] MEDS: **NOTE PATIENT COMMENT** MISC XX (09:00)
[2018-04-10] MEDS: oxyCODONE 10 MG CR TAB PO ×2 (09:36→21:10)
[2018-04-10] MEDS: MORPHINE 10MG/0.5ML ORAL CONCENTRATE SOLUTION U/D SL ×2 (16:39→23:44)
[2018-04-10] MEDS: LIDOCAINE 5% (LIDODERM) PATCH TOP (21:10)
[2018-04-10] MEDS: SCOPOLAMINE 1MG TRANSDERMAL PATCH TOP (21:30)
[2018-04-11] MEDS: HYDROcodone/APAP LIQUID 7.5-325MG 15ML UDC (LORTAB ELIXIR) PO (02:01)
[2018-04-11] MEDS: CYCLOBENZAPRINE 10 MG TAB PO ×3 (05:19→20:45)
[2018-04-11] MEDS: LACTULOSE 20 GM/30 ML SYRUP UD PO ×4 (05:19→23:30)
[2018-04-11] MEDS: oxyCODONE 5MG TAB PO ×3 (05:19→18:21)
[2018-04-11] MEDS: **NOTE PATIENT COMMENT** MISC XX (09:00)
[2018-04-11] MEDS: oxyCODONE 10 MG CR TAB PO ×2 (09:19→20:46)
[2018-04-11] MEDS: MORPHINE 10MG/0.5ML ORAL CONCENTRATE SOLUTION U/D SL ×2 (17:39→20:46)
[2018-04-11] MEDS: SCOPOLAMINE 1MG TRANSDERMAL PATCH TOP (18:13)
[2018-04-11] MEDS: LIDOCAINE 5% (LIDODERM) PATCH TOP (20:46)
[2018-04-12] MEDS: MORPHINE 10MG/0.5ML ORAL CONCENTRATE SOLUTION U/D SL ×4 (01:57→20:24)
[2018-04-12] MEDS: CYCLOBENZAPRINE 10 MG TAB PO ×3 (05:07→20:24)
[2018-04-12] MEDS: oxyCODONE 5MG TAB PO (05:08)
[2018-04-12] MEDS: LACTULOSE 20 GM/30 ML SYRUP UD PO ×4 (05:08→23:18)
[2018-04-12] MEDS ORDERED: POVIDONE-IODINE 5% OPHTH PREP SOL 30ML As Ordered (06:42)
[2018-04-12] MEDS ORDERED: LIDOCAINE 0.75%/EPINEPHRINE 0.025% IN BSS 1ML SYR INTRACAMERAL (OR ONLY) As Ordered (06:43)
[2018-04-12] MEDS ORDERED: DUOVISC (0.50ML VISCOAT/0.55ML PROVISC) OPHTH KIT As Ordered (06:43)
[2018-04-12] MEDS ORDERED: BALANCED SALT IRRIGATION SOLUTION 500ML BAG (FOR OR EYE MACHINE) As Ordered (06:43)
[2018-04-12] MEDS: oxyCODONE 10 MG CR TAB PO ×2 (09:10→20:23)
[2018-04-12] MEDS: **NOTE PATIENT COMMENT** MISC XX (09:11)
[2018-04-12] MEDS: LIDOCAINE 5% (LIDODERM) PATCH TOP (20:23)
[2018-04-12] MEDS: LORazepam 1 MG TAB PO (23:18)
[2018-04-13] MEDS: LORazepam 1 MG TAB PO (02:00)
[2018-04-13] MEDS: LACTULOSE 20 GM/30 ML SYRUP UD PO ×5 (05:40→23:10)
[2018-04-13] MEDS: CYCLOBENZAPRINE 10 MG TAB PO ×3 (05:40→21:34)
[2018-04-13] MEDS: oxyCODONE 10 MG CR TAB PO ×2 (08:36→20:21)
[2018-04-13] MEDS: **NOTE PATIENT COMMENT** MISC XX (08:36)
[2018-04-13] MEDS: oxyCODONE 5MG TAB PO (10:04)
[2018-04-13] MEDS: MORPHINE 10MG/0.5ML ORAL CONCENTRATE SOLUTION U/D SL ×2 (12:51→15:16)
[2018-04-13] MEDS: HYDROcodone/APAP LIQUID 7.5-325MG 15ML UDC (LORTAB ELIXIR) PO (16:44)
[2018-04-13] MEDS: LIDOCAINE 5% (LIDODERM) PATCH TOP (20:21)
[2018-04-14] MEDS: CYCLOBENZAPRINE 10 MG TAB PO ×3 (06:02→21:45)
[2018-04-14] MEDS: LACTULOSE 20 GM/30 ML SYRUP UD PO ×3 (06:02→18:00)
[2018-04-14] MEDS: MORPHINE 10MG/0.5ML ORAL CONCENTRATE SOLUTION U/D SL ×2 (07:52→10:21)
[2018-04-14] MEDS: LORazepam 1 MG TAB PO (08:32)
[2018-04-14] MEDS: oxyCODONE 10 MG CR TAB PO ×2 (08:33→21:45)
[2018-04-14] MEDS: **NOTE PATIENT COMMENT** MISC XX (08:43)
[2018-04-14] MEDS: oxyCODONE 5MG TAB PO (11:36)
[2018-04-14] MEDS: HYDROcodone/APAP LIQUID 7.5-325MG 15ML UDC (LORTAB ELIXIR) PO (14:53)
[2018-04-14] MEDS: LIDOCAINE 5% (LIDODERM) PATCH TOP (21:46)
[2018-04-15] MEDS: LACTULOSE 20 GM/30 ML SYRUP UD PO ×5 (00:16→18:00)
[2018-04-15] MEDS: CYCLOBENZAPRINE 10 MG TAB PO ×4 (05:43→22:00)
[2018-04-15] MEDS: **NOTE PATIENT COMMENT** MISC XX (08:48)
[2018-04-15] MEDS: oxyCODONE 10 MG CR TAB PO ×2 (08:48→22:00)
[2018-04-15] MEDS: MORPHINE 10MG/0.5ML ORAL CONCENTRATE SOLUTION U/D SL (17:39)
[2018-04-15] MEDS: HYDROcodone/APAP LIQUID 7.5-325MG 15ML UDC (LORTAB ELIXIR) PO (18:50)
[2018-04-15] MEDS: LIDOCAINE 5% (LIDODERM) PATCH TOP (22:00)
[2018-04-16] MEDS: LACTULOSE 20 GM/30 ML SYRUP UD PO ×4 (05:31→18:00)
[2018-04-16] MEDS: CYCLOBENZAPRINE 10 MG TAB PO ×3 (05:32→20:28)
[2018-04-16] MEDS: **NOTE PATIENT COMMENT** MISC XX (07:18)
[2018-04-16] MEDS: oxyCODONE 10 MG CR TAB PO ×2 (09:06→20:28)
[2018-04-16] MEDS: HYDROcodone/APAP LIQUID 7.5-325MG 15ML UDC (LORTAB ELIXIR) PO ×2 (11:06→18:22)
[2018-04-16] MEDS: LIDOCAINE 5% (LIDODERM) PATCH TOP (20:28)
[2018-04-16] MEDS: MORPHINE 10MG/0.5ML ORAL CONCENTRATE SOLUTION U/D SL (20:28)
[2018-04-17] MEDS: LACTULOSE 20 GM/30 ML SYRUP UD PO ×3 (01:00→09:54)
[2018-04-17] MEDS: CYCLOBENZAPRINE 10 MG TAB PO ×2 (05:36→09:55)
[2018-04-17] MEDS: **NOTE PATIENT COMMENT** MISC XX (08:02)
[2018-04-17] MEDS: oxyCODONE 10 MG CR TAB PO ×2 (08:02→18:59)
[2018-04-17] MEDS: HYDROcodone/APAP LIQUID 7.5-325MG 15ML UDC (LORTAB ELIXIR) PO ×2 (11:01→18:40)
[2018-04-17] MEDS: MORPHINE 10MG/0.5ML ORAL CONCENTRATE SOLUTION U/D SL (18:16)
[2018-04-17] MEDS: LIDOCAINE 5% (LIDODERM) PATCH TOP (19:00)
[2018-04-17] MEDS: LORazepam 1 MG TAB PO (19:19)
[2018-04-18] MEDS: MORPHINE 10MG/0.5ML ORAL CONCENTRATE SOLUTION U/D SL ×2 (00:48→10:13)
[2018-04-18] MEDS: oxyCODONE 10 MG CR TAB PO (08:45)
[2018-04-18] MEDS: **NOTE PATIENT COMMENT** MISC XX (08:52)
== END 2018-04-18 11:10 | disposition hospice, inpatient (51) | DRG 374 ==
LOC: M ED 12:49 → M ED INP 17:14 → M MSPAV 19:54
DX: C15.9 Malignant neoplasm of esophagus, unspecified (principal); I63.59 Cerebral infarction due to unspecified occlusion or stenosis of other cerebral artery; C78.7 Secondary malignant neoplasm of liver and intrahepatic bile duct; C79.51 Secondary malignant neoplasm of bone; R64 Cachexia; I50.22 Chronic systolic (congestive) heart failure; R13.10 Dysphagia, unspecified; I11.0 Hypertensive heart disease with heart failure; Z51.5 Encounter for palliative care; E05.00 Thyrotoxicosis with diffuse goiter without thyrotoxic crisis or storm; E04.2 Nontoxic multinodular goiter; M25.512 Pain in left shoulder; R30.0 Dysuria; D64.9 Anemia, unspecified; I25.10 Atherosclerotic heart disease of native coronary artery without angina pectoris; I25.2 Old myocardial infarction; I50.9 Heart failure, unspecified; E21.3 Hyperparathyroidism, unspecified; K59.00 Constipation, unspecified; K21.9 Gastro-esophageal reflux disease without esophagitis; Z79.01 Long term (current) use of anticoagulants; Z79.899 Other long term (current) drug therapy